=== PATIENT | female | born 1975 | race Caucasian/White ===

== ENCOUNTER 2020-07-17 06:01 | Day surgery (SDC) | payer OTHER, SELFPAY ==
[2020-07-10 12:02] LABS: BASOPHILS # (AUTO) 0.1 K/uL (0.00-0.22); BASOPHILS % (AUTO) 1.3 % (0.0-2.0); EOSINOPHILS # (AUTO) 0.1 K/uL (0-0.4); EOSINOPHILS % (AUTO) 1.2 % (0.0-4.0); HEMATOCRIT 38.5 % (36-48); HEMOGLOBIN 12.9 g/dL (12.0-16.0); LYMPHOCYTES # (AUTO) 2.7 K/uL (2.5-16.5); LYMPHOCYTES % (AUTO) 35.4 % (20.5-51.1); MEAN CORPUSCULAR HEMOGLOBIN 30 pg (27-31); MEAN CORPUSCULAR HGB CONC 34 g/dL (33-37); MEAN CORPUSCULAR VOLUME 88.7 fL (80-94); MONOCYTES # (AUTO) 0.7 K/uL (0.8-1.0); MONOCYTES % (AUTO) 9.9 % (1.7-9.3); NEUTROPHILS # (AUTO) 3.9 K/uL (1.8-7.7); NEUTROPHILS % (AUTO) 52.2 % (42.2-75.2); PLATELET COUNT (AUTO) 245 K/uL (140-450); RED BLOOD CELL COUNT(AUTO) 4.34 MIL/uL (4.20-5.40); RED CELL DISTRIBUTION WIDTH 13.8 % (11.6-13.7); WHITE BLOOD COUNT (AUTO) 7.6 K/uL (4.8-10.8)
[2020-07-10 12:19] LABS: ALBUMIN 3.7 g/dL (3.4-5.0); ANION GAP 10.7 (8-16); CARBON DIOXIDE 28.8 mmol/L (21-32); CREATININE 0.8 mg/dL (0.6-1.3); POTASSIUM 4.5 mmol/L (3.5-5.1); TOTAL BILIRUBIN 0.7 mg/dL (0.0-1.0)
[~2020-07-17] VITALS: Ht 152.4 cm; Wt 77.1 kg
[2020-07-17] MEDS ORDERED: diphenhydrAMINE 50 MG/ML VIAL IVP PRN (08:40)
[2020-07-17] MEDS ORDERED: MEPERIDINE 25 MG/ML SYR IVP PRN (08:40)
[2020-07-17] MEDS ORDERED: fentaNYL citrate 0.05 MG/ML VIAL IVP PRN (08:40)
[2020-07-17] MEDS ORDERED: ONDANSETRON 4 MG/2 ML VIAL IVP PRN (08:40)
[2020-07-17] MEDS ORDERED: LACTATED RINGERS 1,000 ML IV SCH (08:40)
[2020-07-17] MEDS ORDERED: LIDOCAINE 2% 100 MG/5 ML SYR IVP ONE (08:45)
[2020-07-17] MEDS ORDERED: NEOSTIGMINE 1:1000 10 MG/10 ML VIAL ONE (08:45)
[2020-07-17] MEDS ORDERED: ROCURONIUM 50 MG/5 ML VIAL IV ONE (08:45)
[2020-07-17] MEDS ORDERED: MEPERIDINE 25 MG/ML SYR ONE (08:45)
[2020-07-17] MEDS ORDERED: DEXAMETHASONE 4 MG/ML VIAL ONE (08:45)
[2020-07-17] MEDS ORDERED: SEVOFLURANE 250 ML BTL INH ONE (08:45)
[2020-07-17] MEDS ORDERED: GLYCOPYRROLATE 0.2 MG/ML VIAL ONE (08:45)
[2020-07-17] MEDS ORDERED: METOCLOPRAMIDE 10 MG/2 ML INJ VIAL ONE (08:45)
[2020-07-17] MEDS ORDERED: PROPOFOL 200 MG/20 ML VIAL IV ONE (08:45)
[2020-07-17] MEDS ORDERED: ONDANSETRON 4 MG/2 ML VIAL ONE (08:45)
[2020-07-17] MEDS ORDERED: fentaNYL citrate 0.05 MG/ML VIAL ONE (08:45)
[2020-07-17] MEDS ORDERED: KETOROLAC 30 MG/ML VIAL ONE (08:45)
== END 2020-07-17 11:20 | disposition home or self-care (01) ==
LOC: MDS 06:01 → MMU 06:01 → MDS 11:20
PROVIDERS: ATTEND Obstetrics & Gynecology
DX: N92.0 Excessive and frequent menstruation with regular cycle (principal); D25.1 Intramural leiomyoma of uterus; F41.9 Anxiety disorder, unspecified; K29.70 Gastritis, unspecified, without bleeding; Z79.899 Other long term (current) drug therapy; Z20.828 Contact with and (suspected) exposure to other viral communicable diseases
CPT/HCPCS: 36415; 80053; 81025; 84703; 85025; J1100; J1885; J2001; J2175; J2405; J2704; J2710; J2765; J3010; J3490; J7120; U0003-CS

== ENCOUNTER 2021-12-19 03:13 | Emergency (ER) | payer OTHER, SELFPAY ==
[~2021-12-19] VITALS: Ht 152.4 cm; Wt 79.4 kg
[2021-12-19 03:30] VITALS: BP 131/81
--- NOTE | 2021-12-19 03:32 | NUR ---
TO LOBBY A/W BED AMBULATORY
--- NOTE | 2021-12-19 03:48 | NUR ---
PT TAKEN TO BED 3
--- NOTE | 2021-12-19 03:50 | NUR ---
RECEIVED IN BED 3 WITH C/O LOWER ABD PAIN, VAG PAIN, ITCHINESS,FOR 3 MONTHS, BOTH LEG PAIN, FOR 2 DAYS.
[2021-12-19 04:27] LABS: BASOPHILS # (AUTO) 0.1 K/uL (0.00-0.22); BASOPHILS % (AUTO) 1.1 % (0.0-2.0); EOSINOPHILS # (AUTO) 0.1 K/uL (0-0.4); HEMATOCRIT 38.4 % (36-48); HEMOGLOBIN 13.2 g/dL (12.0-16.0); LYMPHOCYTES # (AUTO) 2.6 K/uL (2.5-16.5); LYMPHOCYTES % (AUTO) 32.5 % (20.5-51.1); MEAN CORPUSCULAR HEMOGLOBIN 31 pg (27-31); MEAN CORPUSCULAR HGB CONC 34 g/dL (33-37); MONOCYTES # (AUTO) 0.7 K/uL (0.8-1.0); MONOCYTES % (AUTO) 8.4 % (1.7-9.3); NEUTROPHILS # (AUTO) 4.6 K/uL (1.8-7.7); PLATELET COUNT (AUTO) 227 K/uL (140-450); RED BLOOD CELL COUNT(AUTO) 4.26 MIL/uL (4.20-5.40); RED CELL DISTRIBUTION WIDTH 13.4 % (11.6-13.7)
[2021-12-19 04:48] LABS: ALBUMIN 3.7 g/dL (3.4-5.0); ANION GAP 13.8 (8-16); CARBON DIOXIDE 26.1 mmol/L (21-32); CREATININE 0.7 mg/dL (0.6-1.3); POTASSIUM 3.9 mmol/L (3.5-5.1); TOTAL BILIRUBIN 1.1 mg/dL (0.0-1.0)
[2021-12-19 05:04] LABS: BILIRUBIN,URINE NEGATIVE (NEGATIVE); BLOOD, URINE TRACE-I (NEGATIVE); COLOR,URINE YELLOW (YELLOW); LEUKOCYTE ESTERASE ,URINE 1+ (NEGATIVE); NITRITE, URINE NEGATIVE (NEGATIVE); UGLUCOSE NEGATIVE (NEGATIVE)
--- NOTE | 2021-12-19 05:11 | NUR ---
Dr. Suh examining patient.
[2021-12-19] MEDS ORDERED: ONDANSETRON 4 MG ODT PO ONE (05:30)
[2021-12-19] MEDS ORDERED: ACETAMINOPHEN EXTRA STRENGTH 500 MG TAB PO ONE (05:35)
[2021-12-19 05:42] LABS: APPEARANCE,URINE SLIGHTLY HAZY (CLEAR)
[2021-12-19 05:43] LABS: RBC,URINE 0-5 /HPF (0-5); YEAST,URINE Few /HPF (None Seen)
--- NOTE | 2021-12-19 05:47 | NUR ---
X-Ray at bedside.
[2021-12-19] MEDS ORDERED: FLUCONAZOLE 100 MG TAB PO ONE (06:25)
[2021-12-19] MEDS ORDERED: cephALEXin 500 MG CAP PO ONE (06:25)
[2021-12-19] MEDS ORDERED: FLUC200T8 PO (06:50)
[2021-12-19] MEDS ORDERED: CEPH-588 PO (06:50)
--- NOTE | 2021-12-19 07:15 | NUR ---
RECEIVED BEDSIDE REPORT FROM [facility] SERVICE DESK ANALYST FOR CONTIONUITY OF CARE. US AT BEDSIDE.
--- NOTE | 2021-12-19 07:28 | NUR ---
PT SITTING UP IN THE BED. AAOX4, ABLE TO MAKE NEEDS KNOWN. WILL CONTINUE TO CLOSELY MONITOR.
[2021-12-19] MEDS ORDERED: IBUPROFEN 600 MG TAB PO SCH (08:50)
[2021-12-19 09:41] VITALS: BP 138/74
--- NOTE | 2021-12-19 09:43 | NUR ---
Patient discharged with v/s stable. Written and verbal after care instructions given and explained. Patient alert, oriented and verbalized understanding of instructions. Ambulatory with steady gait. All questions addressed prior to discharge. ID band removed. Patient advised to follow up with PMD. Rx of KEFLEX, FLUCONAZOLE given. Patient educated on indication of medication including possible reaction and side effects. Opportunity to ask questions provided and answered.
--- NOTE | 2021-12-20 19:01 | NUR ---
LATE ENTRY. +URINE CULTURE RESULT RECEIVED FROM LAB. SIGNED BY DR PRESLEY. COPY OF DISCREPANCY BACK LOG IN FOLDER. COPY SENT TO INFECTION CONTROL.
== END 2021-12-19 09:43 | disposition home or self-care (01) ==
LOC: MED 03:13
DX: B37.49 Other urogenital candidiasis (principal); R11.2 Nausea with vomiting, unspecified; D25.9 Leiomyoma of uterus, unspecified; R30.0 Dysuria; M79.651 Pain in right thigh; M79.652 Pain in left thigh; K59.00 Constipation, unspecified
CPT/HCPCS: 36415; 74018; 76830; 76856; 80053; 81001; 83690; 85025; 87086; 93976; 99285; Q0092; Q0162